=== PATIENT | female | born 1965 | race Hispanic/Latino ===

== ENCOUNTER 2024-09-29 21:14 | Emergency (ER) | payer BC, SELFPAY ==
[2024-09-29 21:15] VITALS: BP 132/79; PULSE 92; RESP 18; TEMP 36; O2SAT 95; BMI 27.2
--- NOTE | 2024-09-29 21:30 | RAD_ITS ---
PROCEDURE: SHOULDER MIN 2 VIEWS 09/29/2024 REASON FOR EXAM: PAIN, LIMITED ROM TECHNIQUE: SHOULDER MIN 2 VIEWS Laterality: Right COMPARISON: None. FINDINGS: BONES: No acute fracture or focal osseous lesion. JOINTS: No dislocation. The joint spaces are preserved. SOFT TISSUES: Calcification along the humeral head margin in the region of the rotator cuff attachment. RAD/Shoulder min 2 Views IMPRESSION: 1. No acute osseous abnormality. 2. Findings suggest rotator cuff calcific tendinopathy. Reading Location: [id number]
--- NOTE | 2024-09-29 22:31 | EX.ED.UPPERE ---
HPI History of Present Illness Chief Complaint: Upper Extremity Injury Informant: patient and family Narrative Narrative: Ambidextrous female here with her [id number] translating. Cypriot-speaking. Right shoulder pain started yesterday. 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 History of similar few years ago improved with medications. She is not a diabetic. She does follow with PCP Dr. Goldstein. Denies history of gastric ulcers or kidney injury. Took Tylenol yesterday. Pain worse with movement. Only medical history of hypothyroidism. Prior similar symptoms: Yes PFSH PFSH Medical History no medical history Home Medications ?Medication ?Instructions ?Recorded ?Last Taken ?Type ibuprofen 600 mg tablet 600 mg PO Q6H PRN PRN pain #20 09/29/24 Unknown Rx TABLETS prednisone 20 mg tablet 60 mg (3 x 20 mg) PO DAILY #12 09/29/24 Unknown Rx TABLETS Allergy/AdvReac Type Severity Reaction Status Date / Time No Known Allergies Allergy Verified 09/29/24 21:15 Family History no significant family his Surgical History no surgical history Social History Smoking Status: Never smoker ROS ROS ED Constitutional Constitutional ED: Denies fever(s) Cardiovascular Cardiovascular: Denies chest pain Respiratory/Chest Respiratory/Chest: Denies cough Gastrointestinal Gastrointestinal: Denies diarrhea or vomiting Musculoskeletal Musculoskeletal: Reports other Details: Right shoulder pain Integumentary Denies rash or wounds Neurologic Neurologic: Denies weakness EXAM Physical Exam Const Vital Signs: 09/29/24 21:15 Temperature 96.8 F L Temperature Source Temporal Pulse Rate 92 Respiratory Rate 18 Blood Pressure 132/79 H Blood Pressure Mean 96 Pulse Ox 95 Oxygen Delivery Method Room Air Positive well nourished and well developed General Appearance ED: well developed and NAD HEENT Reports moist mucous membranes normocephalic and atraumatic Eyes General Eye ED: Yes normal appearance of both eyes Neck full ROM Chest Wall Chest: Negative for tenderness Resp normal respiratory effort and normal air movement Effort and Inspection: symmetric chest movement; Negative for respiratory distress Cardio regular rate, regular rhythm and no murmurs Peripheral Pulses: pulses 2+ throughout GI normal to inspection, nondistended, normoactive bowel sounds and non-tender Palpation: Negative for guarding or rebound tenderness present Extremity Extremity Narrative: Right upper extremity: No clavicle tenderness. No deformities of the shoulder. Positive speeds test negative empty can. Soft compartments. Pulses intact distally. General Extremety ED: Yes tenderness; Negative for edema General Extremity: Negative for edema Neuro oriented x3 and no sensory deficits noted Sensorium / Orientation: awake and alert Skin no rashes or lesions noted and no wounds MDM MDM MDM Narrative Medical decision making narrative: Interventions / MDM: Differential diagnosis: Biceps tendinitis, rotator cuff strain Diagnosis considered but do not suspect: Fracture/dislocation however x-ray negative. My EKG interpretation: N/A Imaging independently reviewed and interpreted by myself: Right shoulder 3 views: No fracture or dislocation. Rotator cuff tendinopathy noted also read by radiology. External documents reviewed: N/A Test considered but not ordered:N/A ED course: Patient x-ray through triage for myself and read by radiology no fracture dislocation calcified tendinopathy noted. However clinical has biceps tendinitis. Nondiabetic. Start ibuprofen and steroids. Outpatient follow-up with her doctor. All questions were answered. Re-evaluation: stable Disposition discussed with patient/family/significant other: Patient and family Case discussed with consulting clinician: N/A This note was generated with Closely dictation software. It may contain incorrect words, spelling, and punctuation that were not noted in checking the note before signing. Radiography Diagnostic Testing: Clinical Impression(s) from Imaging Studies Shoulder X-Ray 09/29/24 21:30 IMPRESSION: 1. No acute osseous abnormality. 2. Findings suggest rotator cuff calcific tendinopathy. Reading Location: [facility] Discharge Plan Triage Chief Complaint: Upper Extremity Injury ED Provider: Nestor Blandon Dx/Rx/DC Orders Clinical Impression: Biceps tendinitis, Right shoulder strain Instructions: Biceps Tendonitis, ED Shoulder Sprain Prescriptions: New prednisone 20 mg tablet 60 mg PO DAILY Qty: 12 0RF ibuprofen 600 mg tablet 600 mg PO Q6H PRN PRN (Reason: pain) Qty: 20 0RF Stand Alone Forms: ED Work / School Excuse Primary Care Provider: Baltazar Goldstein Chi Referrals: Baltazar Goldstein Chi, MD [Primary Care Provider] - 1 Week Activity Restrictions/Additional Instructions: Shoulder x-ray arthritis with tendinopathy. No clinical biceps tendinitis on evaluation. Take medications as prescribed. Follow-up with your doctor. Print Language: Cypriot Disposition Disposition: Home, Self Care Discharge Date/Time: 09/29/24 22:37
[2024-09-29 22:36] VITALS: BP 132/79; PULSE 92; RESP 18; TEMP 36; O2SAT 95
== END 2024-09-29 22:37 | disposition home or self-care (01) ==
PROVIDERS: Emergency Provider Emergency Medicine; PCP Family Medicine Geriatric Medicine; Visit Provider Emergency Medicine
DX: M75.21 Bicipital tendinitis, right shoulder (principal); S46.911A Strain of unspecified muscle, fascia and tendon at shoulder and upper arm level, right arm, initial encounter; X50.0XXA Overexertion from strenuous movement or load, initial encounter; Y99.0 Civilian activity done for income or pay
CPT/HCPCS: 73030; 99282